=== PATIENT | male | born 1945 | race Caucasian/White ===

== ENCOUNTER 2018-05-02 15:58 | Emergency (ER) | payer MEDICARE ==
[~2018-05-02] VITALS: Ht 177.8 cm; Wt 71.2 kg
[2018-05-02 16:20] VITALS: BP 188/93
[2018-05-02] MEDS ORDERED: cefTRIAXone SOD 1,000 MG VL IM ONE (16:45)
== END 2018-05-02 17:52 | disposition home or self-care (01) ==
LOC: ER 15:58
DX: L03.113 Cellulitis of right upper limb (principal); M10.9 Gout, unspecified
CPT/HCPCS: 73140; 96372; 99284; J0696

== ENCOUNTER 2020-09-19 13:40 | Inpatient (IN) | payer MEDICARE ==
[~2020-09-19] VITALS: Ht 177.8 cm; Wt 67.5 kg
[2020-09-19 15:03] LABS: Basophils # (auto) 0.1 10 ^3/uL (0-0.2); Eosinophils # (auto) 0.1 10 ^3/uL (0-0.8); Eosinophils % (auto) 0.6 % (0.0-7.0); Hematocrit 44.7 % (41.0-53.0); Monocytes # (auto) 0.7 10 ^3/uL (0-1.3); Neutrophils # (auto) 6.9 10 ^3/uL (1.6-8.6); Nucleated Red Blood Cells % 0.1 %; Red Blood Cells 4.63 10^6/uL (4.5-5.90); Red Cell Distribution Width 12.5 % (11.8-14.3)
[2020-09-19 15:05] LABS: Basophils % (auto) 0.8 % (0.0-2.0); Hemoglobin 15.7 g/dL (13.5-17.5); Lymphocytes # (auto) 1.7 10 ^3/uL (0.4-5.4); Lymphocytes % (auto) 18.2 % (10.0-50.0); Mean Corpuscular Hemoglobin 33.8 pg (28.0-32.0); Mean Corpuscular Volume 96.7 fL (80.0-100.0); Monocytes % (auto) 7.3 % (0.0-12.0); Neutrophils % (auto) 73.1 % (37.0-80.0); Platelet Count (auto) 226 10^3/uL (140-450); White Blood Cell 9.5 10^3/uL (4.4-10.8)
[2020-09-19 15:19] LABS: Albumin 3.9 g/dL (3.4-5.0); Calcium 9.3 mg/dL (8.5-10.1); Potassium 3.7 mmol/L (3.5-5.1)
[2020-09-19 15:24] LABS: BUN/Creatinine Ratio 13.8; Bilirubin, Total 0.8 mg/dL (0.2-1.0); Total Protein 8.1 g/dL (6.4-8.2); Uric Acid 6.7 mg/dL (3.5-7.2)
[2020-09-19] MEDS ORDERED: ACETAMINOPHEN 500 MG TAB PO PRN (18:00)
[2020-09-19] MEDS ORDERED: ONDANSETRON HCL 4 MG/2 ML VIAL IV PRN (18:00)
[2020-09-19] MEDS ORDERED: MORPHINE SULF INJ 2 MG/ML SYRINGE 1ML IV PRN (18:00)
[2020-09-19] MEDS ORDERED: ALLOPURINOL 100 MG TAB PO ONE (18:30)
[2020-09-19] MEDS: cefTRIAXone 1GM/50ML D5W 50 ML IV SCH (18:33)
[2020-09-19] MEDS: SODIUM CHLORIDE 0.9% 1,000 ML IV SCH (18:34)
[2020-09-19 22:00] VITALS: BP 147/73
[2020-09-20] MEDS: DOCUSATE SOD 100 MG CAP PO SCH ×3 (00:10→22:00)
[2020-09-20] MEDS: LACTULOSE 20Gm/30ML SOLN PO SCH ×3 (00:10→22:00)
[2020-09-20] MEDS: CLINDAMYCIN 300MG IV 50 ML IV SCH ×4 (00:11→22:17)
[2020-09-20] MEDS ORDERED: COLCPOW2 PO (01:42)
[2020-09-20] MEDS ORDERED: ALLO300T2 PO (01:42)
[2020-09-20 04:46] VITALS: BP 147/81
[2020-09-20] MEDS: HYDROcodone-ACET 5/325MG TAB PO PRN ×2 (07:36→20:43)
[2020-09-20] MEDS: SODIUM CHLORIDE 0.9% 1,000 ML IV SCH ×2 (07:36→20:42)
[2020-09-20 08:39] VITALS: BP 165/96
[2020-09-20] MEDS: FLORASTOR (S. BOULARDII) 250 MG CAP PO SCH (10:45)
[2020-09-20] MEDS: FAMOTIDINE 20 MG TAB PO SCH (10:48)
[2020-09-20] MEDS: ALLOPURINOL 100 MG TAB PO SCH (10:49)
[2020-09-20 12:45] VITALS: BP 141/73
[2020-09-20 17:00] VITALS: BP 157/83
[2020-09-20] MEDS: cefTRIAXone 1GM/50ML D5W 50 ML IV SCH (20:43)
[2020-09-20 22:00] VITALS: BP 148/73
[2020-09-21 05:00] VITALS: BP 148/66
[2020-09-21] MEDS: CLINDAMYCIN 300MG IV 50 ML IV SCH ×2 (05:24→17:33)
[2020-09-21 09:02] VITALS: BP 159/79
[2020-09-21] MEDS ORDERED: ONDANSETRON HCL 4 MG/2 ML VIAL IV PRN (09:45)
[2020-09-21] MEDS: LACTULOSE 20Gm/30ML SOLN PO SCH ×2 (10:00→22:00)
[2020-09-21] MEDS: SODIUM CHLORIDE 0.9% 1,000 ML IV SCH (10:05)
[2020-09-21] MEDS: FLORASTOR (S. BOULARDII) 250 MG CAP PO SCH (10:05)
[2020-09-21] MEDS: FAMOTIDINE 20 MG TAB PO SCH (10:06)
[2020-09-21] MEDS: DOCUSATE SOD 100 MG CAP PO SCH ×2 (10:06→22:00)
[2020-09-21] MEDS: ALLOPURINOL 100 MG TAB PO SCH (10:06)
[2020-09-21 12:34] VITALS: BP 158/70
[2020-09-21 16:32] VITALS: BP 166/91
[2020-09-21] MEDS: cefTRIAXone 1GM/50ML D5W 50 ML IV SCH (21:39)
[2020-09-21 22:00] VITALS: BP 149/68
[2020-09-22] MEDS: SODIUM CHLORIDE 0.9% 1,000 ML IV SCH (00:41)
[2020-09-22] MEDS: CLINDAMYCIN 300MG IV 50 ML IV SCH ×2 (00:41→05:18)
[2020-09-22 05:00] VITALS: BP 156/72
[2020-09-22 08:39] VITALS: BP 167/85
[2020-09-22] MEDS: DOCUSATE SOD 100 MG CAP PO SCH (09:14)
[2020-09-22] MEDS: ALLOPURINOL 100 MG TAB PO SCH (09:14)
[2020-09-22] MEDS: LACTULOSE 20Gm/30ML SOLN PO SCH (09:14)
[2020-09-22] MEDS: FAMOTIDINE 20 MG TAB PO SCH (09:15)
[2020-09-22] MEDS: FLORASTOR (S. BOULARDII) 250 MG CAP PO SCH (09:15)
== END 2020-09-22 12:36 | disposition home or self-care (01) | DRG 603 ==
LOC: ER 13:40 → OVERFLOW 13:41 → CENTRAL 21:44
PROVIDERS: ADMIT Nurse Practitioner Acute Care; ATTEND Family Medicine
DX: L03.113 Cellulitis of right upper limb (principal); M1A.9XX1 Chronic gout, unspecified, with tophus (tophi); K59.00 Constipation, unspecified; B95.61 Methicillin susceptible Staphylococcus aureus infection as the cause of diseases classified elsewhere; Z20.822 Contact with and (suspected) exposure to COVID-19; Z80.0 Family history of malignant neoplasm of digestive organs; Z91.041 Radiographic dye allergy status
CPT/HCPCS: 36415; 73200; 74176; 80053; 84550; 85025; 85652; 87077; 87186; 87205; 87426; 93971; 96365; G0378; J0696; J3490

== ENCOUNTER → 2021-01-03 | Outpatient (CLI) | payer MEDICARE ==
[~2021-01-03] MED LIST: ALLO300T2 PO; COLCPOW2 PO
[2021-01-03 11:37] LABS: Urine Bacteria NONE SEEN /hpf (None Seen); Urine Blood Negative /uL (Negative); Urine Mucus FEW (None Seen); Urine Specific Gravity 1.027 (1.001-1.035); Urine WBC <1 /hpf (0 - 3)
[2021-01-03 12:31] LABS: Free T4 (Free Thyroxine) 1.18 ng/dL (0.89-1.76)
[2021-01-03 12:37] LABS: Basophils # (auto) 0.1 10 ^3/uL (0-0.2); Eosinophils # (auto) 0.1 10 ^3/uL (0-0.8); Eosinophils % (auto) 1.6 % (0.0-7.0); Hematocrit 41.4 % (41.0-53.0); Hemoglobin 14.5 g/dL (13.5-17.5); Lymphocytes # (auto) 2.3 10 ^3/uL (0.4-5.4); Lymphocytes % (auto) 34.8 % (10.0-50.0); Mean Corpuscular Hemoglobin 33.9 pg (28.0-32.0); Mean Corpuscular Hgb Conc. 35.1 g/dL (32.0-36.0); Mean Corpuscular Volume 96.7 fL (80.0-100.0); Monocytes # (auto) 0.4 10 ^3/uL (0-1.3); Neutrophils # (auto) 3.8 10 ^3/uL (1.6-8.6); Neutrophils % (auto) 56.6 % (37.0-80.0); Nucleated Red Blood Cells % 0.1 %; Red Blood Cells 4.28 10^6/uL (4.5-5.90); Red Cell Distribution Width 13.9 % (11.8-14.3); White Blood Cell 6.7 10^3/uL (4.4-10.8)
[2021-01-03 13:02] LABS: Potassium 3.7 mmol/L (3.5-5.1)
[2021-01-03 13:15] LABS: Albumin 3.9 g/dL (3.4-5.0); BUN/Creatinine Ratio 15.2; Bilirubin, Total 0.7 mg/dL (0.2-1.0); Calcium 9.4 mg/dL (8.5-10.1); Total Protein 7.7 g/dL (6.4-8.2)
== END | disposition home or self-care (01) ==
LOC: LAB 11:03
PROVIDERS: ATTEND Internal Medicine
DX: M10.9 Gout, unspecified (principal); E78.5 Hyperlipidemia, unspecified; R73.03 Prediabetes; R00.2 Palpitations; R51.9 Headache, unspecified
CPT/HCPCS: 36415; 80053; 80061; 81001; 82306; 82607; 83036; 84439; 84443; 85025; 85049